=== PATIENT | male | born 1970 | race Caucasian/White ===

== ENCOUNTER 2017-08-23 11:22 | Emergency (ER) | payer SELFPAY ==
[2017-08-23 11:30] VITALS: BP 119/73; PULSE 62; RESP 18; TEMP 97.7; O2SAT 99
--- NOTE | 2017-08-23 11:47 | CPEKG ---
Heart Rate: 62 RR Interval: 968 P-R Interval: 184 QRSD Interval: 110 QT Interval: 412 QTC Interval: 419 P [place]: 58 QRS [place]: 68 T Wave [place]: 79 EKG Severity - ABNORMAL ECG - EKG Impression: SINUS RHYTHM EKG Impression: NONSPECIFIC INTRAVENTRICULAR CONDUCTION DELAY Electronically Signed By: Jan Fernández 23-Aug-2017 14:33:03
[2017-08-23 11:59] LABS: % IMMATURE GRANULYOCYTES 0.5 % (0.0-1.1); ABSOLUTE IMMATURE GRANULOCYTES 0.04 10^3/uL (0.00-0.10); ADD DIFF? NO; ADD MORPH? NO; ADD SCAN? NO; ATYPICAL LYMPHOCYTE FLAG 10 (0-99); FRAGMENT RBC FLAG 0 (0-99); HEMATOCRIT 44.7 % (40.0-51.0); HEMOGLOBIN 15.7 g/dL (13.7-17.5); LEFT SHIFT FLG 0 (0-99); LIPEMIA HEMOLYSIS FLAG 90 (0-99); MEAN CELL HEMOGLOBIN 31.7 pg (27.9-34.1); MEAN CELL HEMOGLOBIN CONCENTR. 35.1 g/dL (32.4-36.7); MEAN CELL VOLUME 90.3 fL (81.5-99.8); MEAN PLATELET VOLUME 9.4 fL (8.7-11.7); PLATELET CLUMPS FLAG 0 (0-99); PLATELET COUNT 341 10^3/uL (150-400); RED BLOOD CELL COUNT 4.95 10^6/uL (4.40-6.38); RED CELL DISTRIBUTION WIDTH 12.2 % (11.5-15.2)
--- NOTE | 2017-08-23 12:04 | EDPHY ---
H & P Stated Complaint: sent from with 1 wk cp Time Seen by Provider: 08/23/17 11:40 - Personal History Current Tetanus/Diphtheria Vaccine: Yes - Medical/Surgical History Hx Asthma: No Hx Chronic Respiratory Disease: No Hx Diabetes: No Hx Cardiac Disease: No Hx Renal Disease: No Hx Cirrhosis: No Hx Alcoholism: No Hx HIV/AIDS: No Hx Splenectomy or Spleen Trauma: No Other PMH: htn - Social History Smoking Status: Never smoked Constitutional: Initial Vital Signs Temperature (C) 36.5 C 08/23/17 11:27 Heart Rate 62 08/23/17 11:27 Respiratory Rate 18 08/23/17 11:27 Blood Pressure 119/73 08/23/17 11:27 O2 Sat (%) 99 08/23/17 11:27 O2 Delivery Mode Room Air Allergies/Adverse Reactions: No Known Allergies Allergy (Unverified 08/23/17 11:26) Home Medications: Medication Instructions Recorded Lisinopril 08/23/17 Norvasc 08/23/17 Medical Decision Making - Diagnostics Imaging: I viewed and interpreted images myself ED Course/Re-evaluation: CHIEF COMPLAINT: Chest pain HISTORY OF PRESENT ILLNESS: The patient is a 47 y/o male with a history of hypertension and sleep apnea complaining of intermittent chest pain onset one week ago. He describes his pain as tightness that radiates into his left clavicle region. He has associated flushing and says each episode lasts about 5 minutes each time. He cannot identify obvious precipitating causes for his symptoms. He has noticed pain at exertion, while resting, and upon waking. Today , he noticed pain shortly after waking from sleep, but was able to run errands normally. He is compliant with his Norvasc and lisinopril. He has not had a full cardiac work up. He has a family history of hypertension and believes his father had a cardiac stent placed after age 65. He is a nonsmoker. He does not know what his cholesterol levels are. REVIEW OF SYSTEMS: A 10 point review of systems was performed and is negative with the exception of the elements mentioned in the history of present illness. PHYSICAL EXAM: General Appearance: Alert, well hydrated, appropriate, and non-toxic appearing. Head: Atraumatic without scalp tenderness or obvious injury Eyes: Pupils equal, round, reactive to light and accommodation, EOMI, no trauma , no injection. Nose: Atraumatic, no rhinorrhea, clear. Throat: There is no erythema or exudates, no lesions, normal tonsils, mucus membranes moist. Neck: Supple, non-tender, no lymphadenopathy. Respiratory: No retractions, no distress, no wheezes, and no accessory muscle use. Lungs are clear to auscultation bilaterally. Cardiovascular: Regular rate and rhythm, no murmurs, rubs, or gallops. Good capillary refill all extremities. Gastrointestinal: Abdomen is soft, non-tender, non-distended, no masses, no rebound, no guarding, no peritoneal signs. Musculoskeletal: Normal active ROM of all extremities, atraumatic. Neurological: Alert, appropriate, and interactive. Nonfocal neuro exam. Skin: No rashes, good turgor, no nodules on palpation. PAST MEDICAL HISTORY: Hypertension - Norvasc, lisinopril; sleep apnea - [facility] PAST SURGICAL HISTORY: Denies FAMILY HISTORY: Hypertension, father had stent around age 65. SOCIAL HISTORY: Moved to [place] 1 year ago from [place]. Nonsmoker. No alcohol. No illicit drug use. [employer]: [place] [facility] DIAGNOSTICS/PROCEDURES/CRITICAL CARE TIME: The 12 lead EKG was interpreted by myself. Sinus mechanism rate 62 with mild intraventricular conduction delay. No ischemic changes. See hard copy and/or "tracemaster" electronic copy for interpretation. DIFFERENTIAL DIAGNOSIS: The differential diagnosis for the patient's chest pain included but was not limited to myocardial ischemia, pulmonary embolus, chest wall pain, pleural inflammation, and pulmonary infectious causes. MEDICAL DECISION MAKING: This is a 47 y/o male with a history of hypertension but otherwise minimal cardiac risk factors complaining of a one-week history of intermittent chest tightness at rest and with exertion. Exam is unremarkable. I have decreased suspicion that this is cardiac-related due to the intermittent nature of his symptoms. Plan for standard cardiac work up including IV, labs, EKG, and chest x -ray. Patient will require provocative cardiac testing at some point. EKG shows sinus mechanism without ischemic changes. Labs are normal. Chest x- ray normal. 1245: Consulted with Dr. Buchanan, cardiology. He will see patient on Friday for provocative studies. 1305: I reassessed patient and presented lab and imaging studies. He expressed "brain chatter." He accepted medication for anxiety and will provide him with counselling resources. He expressed concern he was inhaling too much oxygen and he may be hyperventilating. I discussed plan for follow up with the patient and he is comfortable with plan. Ativan script given. Return precautions given. - Data Points Laboratory Results: Laboratory Results 08/23/17 11:45 08/23/17 11:45 08/23/17 08/23/17 08/23/17 11:45 11:45 11:45 WBC 7.63 10^3/uL 10^3/uL (3.80-9.50) RBC 4.95 10^6/uL 10^6/uL (4.40-6.38) Hgb 15.7 g/dL g/dL (13.7-17.5) Hct 44.7 % % (40.0-51.0) MCV 90.3 fL fL (81.5-99.8) MCH 31.7 pg pg (27.9-34.1) MCHC 35.1 g/dL g/dL (32.4-36.7) RDW 12.2 % % (11.5-15.2) Plt Count 341 10^3/uL 10^3/uL (150-400) MPV 9.4 fL fL (8.7-11.7) Neut % (Auto) 62.6 % % (39.3-74.2) Lymph % (Auto) 25.3 % % (15.0-45.0) [place] % (Auto) 8.1 % % (4.5-13.0) Eos % (Auto) 2.5 % % (0.6-7.6) Baso % (Auto) 1.0 % % (0.3-1.7) Nucleat RBC Rel Count 0.0 % % (0.0-0.2) Absolute Neuts (auto) 4.77 10^3/uL 10^3/uL (1.70-6.50) Absolute Lymphs (auto) 1.93 10^3/uL 10^3/uL (1.00-3.00) Absolute Monos (auto) 0.62 10^3/uL 10^3/uL (0.30-0.80) Absolute Eos (auto) 0.19 10^3/uL 10^3/uL (0.03-0.40) Absolute Basos (auto) 0.08 10^3/uL 10^3/uL (0.02-0.10) Absolute Nucleated RBC 0.00 10^3/uL 10^3/uL (0-0.01) Immature Gran % 0.5 % % (0.0-1.1) Immature Gran # 0.04 10^3/uL 10^3/uL (0.00-0.10) D-Dimer < 0.27 ug/mLFEU ug/mLFEU (0.00-0.50) Sodium 140 mEq/L mEq/L (134-144) Potassium 4.2 mEq/L mEq/L (3.5-5.2) Chloride 100 mEq/L mEq/L (97-110) Carbon Dioxide 29 mEq/l mEq/l (22-31) Anion Gap 11 mEq/L mEq/L (8-16) BUN 10 mg/dL mg/dL (7-23) Creatinine 0.9 mg/dL mg/dL (0.7-1.3) Estimated GFR > 60 Glucose 82 mg/dL mg/dL (70-100) Calcium 9.6 mg/dL mg/dL (8.5-10.4) Magnesium 2.2 mg/dL mg/dL (1.6-2.3) Troponin I < 0.012 ng/mL ng/mL (0.000-0.034) NT-Pro-B Natriuret Pep 27 pg/mL pg/mL (0-125) Departure - Departure Disposition: Home, Routine, Self-Care Clinical Impression: Chest pain Qualifiers: Chest pain type: other chest pain Qualified Code(s): R07.89 - Other chest pain Condition: Good Instructions: Chest Pain (ED), Lorazepam (By mouth) Additional Instructions: Follow up Dr. Buchanan on Friday without fail for provocative cardiac testing. They are able to see you Friday morning for a stress test. Return to the ED for any worsening of condition. Take Ativan as prescribed for anxiety. Referrals: Jerry Buchanan MD [Medical Doctor] - As per Instructions Report Scribed for: Jan Fernández Report Scribed by: Shannan Cartwright Date of Report: 08/23/17 Time of Report: 12:04
[2017-08-23 12:29] LABS: ANION GAP 11 mEq/L (8-16); CALCIUM 9.6 mg/dL (8.5-10.4); CARBON DIOXIDE 29 mEq/l (22-31); CHLORIDE 100 mEq/L (97-110); CREATININE 0.9 mg/dL (0.7-1.3); GLOMERULAR FILTRATION RATE > 60; GLUCOSE 82 mg/dL (70-100); MAGNESIUM 2.2 mg/dL (1.6-2.3); POTASSIUM 4.2 mEq/L (3.5-5.2); SODIUM 140 mEq/L (134-144)
[2017-08-23 12:42] LABS: TROPONIN I < 0.012 ng/mL (0.000-0.034)
== END 2017-08-23 13:40 | disposition home or self-care (01) ==
DX: R07.89 Other chest pain (principal); I10 Essential (primary) hypertension